=== PATIENT | female | born 1995 | race Two or more races ===

== ENCOUNTER → 2024-10-25 | Outpatient (CLI) | payer BC, SELFPAY ==
--- NOTE | 2024-10-25 16:18 | XR_ITS ---
Examination: PA chest single view Technique: Upright PA chest single view Exam date and time: October 25, 2024 1628 hrs. Indications: TB screening. Findings: Normal heart size Subtle opacity in the right upper lobe Left lung clear Impression: Recommend AP lordotic chest follow-up to exclude parenchymal disease in the right upper lobe
== END | disposition home or self-care (01) ==
PROVIDERS: PCP Physician Assistant; Referring Provider Physician Assistant; Visit Provider Physician Assistant
DX: Z11.1 Encounter for screening for respiratory tuberculosis (principal); R91.8 Other nonspecific abnormal finding of lung field
CPT/HCPCS: 71045